=== PATIENT | female | born 2000 | race African-American/Black ===

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

== ENCOUNTER 2021-12-31 08:08 | Emergency (ER) | payer BC, MEDICAID ==
[~2021-12-31] VITALS: Ht 160 cm; Wt 84.0 kg
[~2021-12-31 08:08] MED LIST changes: -ALBU6.7H IH; +ALBU6.7H15 IH
[2021-12-31] MEDS ORDERED: IPRATROPIUM/ALBUTEROL 0.5-3(2.5)MG/3ML NEB HHN ONE (08:30)
[2021-12-31] MEDS ORDERED: PREDNISONE 20MG TABLET PO ONE (08:30)
[2021-12-31] MEDS ORDERED: SODI88SP18 BOTHNSTRLS (09:33)
[2021-12-31] MEDS ORDERED: P50 MT (09:33)
[2021-12-31] MEDS ORDERED: IBUP-2028 MT (09:33)
[2021-12-31] MEDS ORDERED: TOPUD PO (09:33)
[2021-12-31] MEDS ORDERED: PSEU-207 MT (09:33)
[2021-12-31] MEDS ORDERED: BENZ100C86 MT (09:41)
[2021-12-31 09:56] VITALS: BP 132/68
== END 2021-12-31 09:57 | disposition home or self-care (01) ==
LOC: ER 08:08
DX: U07.1 COVID-19 (principal); J45.901 Unspecified asthma with (acute) exacerbation; F12.10 Cannabis abuse, uncomplicated
CPT/HCPCS: 71045; 94640; 99283; J7512; Z7610

== ENCOUNTER 2022-06-30 10:02 | Emergency (ER) | payer MEDICAID ==
[~2022-06-30] VITALS: Ht 160 cm; Wt 100.0 kg
[~2022-06-30 10:02] MED LIST changes: +BENZ100C86 MT; +IBUP-2028 MT; +P50 MT; +PSEU-207 MT; +SODI88SP18 BOTHNSTRLS; +TOPUD PO
[2022-06-30 10:29] VITALS: BP 141/82
[2022-06-30] MEDS ORDERED: PSEUDOEPHEDRINE HCL 30MG TABLET PO STA (14:36)
[2022-06-30] MEDS ORDERED: GUAI-453 PO (15:09)
== END 2022-06-30 15:33 | disposition home or self-care (01) ==
LOC: ER 10:02
DX: J06.9 Acute upper respiratory infection, unspecified (principal); R05.9 Cough, unspecified; J45.909 Unspecified asthma, uncomplicated; F12.10 Cannabis abuse, uncomplicated
CPT/HCPCS: 71045; 99283